=== PATIENT | male | born 1985 | race Caucasian/White ===

== ENCOUNTER 2017-09-18 20:47 | Emergency (ER) | payer OTHER, SELFPAY ==
[2017-09-18 20:48] VITALS: BP 155/116; PULSE 90; RESP 20; TEMP 36.6; O2SAT 97; BMI 34.0
[2017-09-18] MEDS: Ketorolac 60 MG/2 ML Vial IM (21:29)
--- NOTE | 2017-09-18 21:30 | ED.DCSUM_ITS ---
- ER Visit Summary Date of Service: 09/18/17 Chief Complaint: [] Low lumbar back pain while doing exercises in gym History of Present Illness: The patient is a 32 M [] he was doing rowing type exercises using a 75 pound weight he had done about 10 repetitions or more he did not have any direct trauma but he felt a pull to his left back during this activity he stopped and came in for evaluation. He has no radiation to his lower extremities no paresthesias chief complaint is a pain to the left paralumbar back he did urinate without difficulty he has no perineal anesthesia and he has no back elements his blood pressure is noted to be high at 155/116 and he states he did take a pre-workout cocktail but has a lot of caffeine in it other substances, he has had his blood pressure checked in the past and is always within normal range Physical Examination: [] No distress when he sitting perfectly flat he feels fine he points to his left paralumbar back is a discomfort he is a large gentleman head neck chest unremarkable lungs are clear heart tones are normal abdomen soft nontender the C-spine T-spine lumbar spine are nontender he has pain to the left lumbar musculature greater than the right lumbar musculature he has no pain to the midline back, he is able to stand and walk without difficulty he can heel raise toe raise and knee bend there is no signs of cauda equina and he denies any sense of perineal anesthesia Test Results: [] Emergency Department Course and Treatment: [] And his history and his physical exam the symptoms are consistent with musculoskeletal process, there is no signs of fracture or bony injury or cauda equina he understands , will be treated with Toradol IM Naprosyn Flexeril [place] No. 4 tablets to use at bedtime he will avoid any strenuous activity and follow-up with his doctor tomorrow return for change in symptoms Treatment Plan: [] Disposition: [] Stable Impression: [] Lumbar back injury working out in gym This note was generated with [employer] dictation software. It may contain incorrect words, spelling, and punctuation that were not noted in review of the chart prior to signing ED Disposition - Plan for ED Patient: Chief Complaint: Back Referrals: Juan Carlos Brian,Melissa Vallejo [Primary Care Provider] -
--- NOTE | 2017-09-18 21:30 | ED.DEP ---
ED Disposition - Plan for ED Patient: Chief Complaint: Back Instructions: ED Low Back Pain Injury Referrals: JuanC arlos Brian,Melissa Vallejo [Primary Care Provider] -
--- NOTE | 2017-09-18 21:31 | DCINST.ED_ITS ---
ED Disposition - Plan for ED Patient: Chief Complaint: Back Instructions: ED Low Back Pain Injury Referrals: Juan Carlos Brian,Melissa Vallejo [Primary Care Provider] -
--- NOTE | 2017-09-18 21:31 | ED.DEP ---
ED Disposition - Plan for ED Patient: Chief Complaint: Back Instructions: ED Low Back Pain Injury Prescriptions: Hydrocodone Bitart/Apap 5-325 [[place] 5/325] 1 tab PO QHS #4 tab Naproxen [Naprosyn] 500 mg PO BID PRN #20 tab Referrals: [facility],Melissa Vallejo [NON-STAFF] -
[2017-09-18 21:49] VITALS: BP 131/69; PULSE 69; RESP 16; O2SAT 96
--- NOTE | 2017-09-18 21:50 | ED.RN ---
REVIEWED D/C INSTRUCTIONS, FOLLOW UP CARE, PRESCRIPTIONS, AND S/S THAT WOULD WARRANT A RETURN TO THE ED WITH PT. PT VERBALIZED AN UNDERSTANDING AND DENIES FURTHER QUESTIONS FOR THIS RN. PT SKIN P/W/D, RESP EVEN AND UNLABORED, PT A&O X 3, NO DISTRESS NOTED. PT AMBULATED OUT OF ED, GAIT STEADY.
== END 2017-09-18 21:52 | disposition home or self-care (01) ==
LOC: ED 21:30
PROVIDERS: Emergency Provider Emergency Medicine; Family Provider Internal Medicine; PCP Internal Medicine
DX: S39.002A Unspecified injury of muscle, fascia and tendon of lower back, initial encounter (principal); X50.0XXA Overexertion from strenuous movement or load, initial encounter; Y93.89 Activity, other specified; Y92.39 Other specified sports and athletic area as the place of occurrence of the external cause; Y99.9 Unspecified external cause status
CPT/HCPCS: 96372; 99282

== ENCOUNTER 2018-05-17 01:34 | Emergency (ER) | payer OTHER, SELFPAY ==
[2018-05-17] VITALS (7 sets, daily range): BP systolic 128–139; BP diastolic 63–75; PULSE 77–89; RESP 14–18; TEMP 36.4; O2SAT 88–99; BMI 34.4
--- NOTE | 2018-05-17 01:41 | ED.DCSUM_ITS ---
- ER Visit Summary Date of Service: 05/17/18 Chief Complaint: Intoxication History of Present Illness: The patient is a 33 M presents to the emergency department for intoxication. Patient was found markedly intoxicated at a local bar. The community service officer coordinator told medics that he did not have too much to drink there, but apparently told me been drinking all day. The patient was vomiting and had passed out. Patient does admit to drinking today. He denies any drug abuse or use. Denies any trauma. He states that I have just been drinking too much. He denies any history of alcohol dependence. He takes no other depressant medications. He denies being suicidal or homicidal. Physical Examination: Vital signs reviewed General: Well-nourished, well-developed Head: Normocephalic, atraumatic Eyes: Pupils equal and reactive, extraocular muscles intact Neck, supple, no lymphadenopathy Heart: Regular rate and rhythm Respiratory: No distress, clear bilaterally Abdomen: Soft, nontender, nondistended, no peritoneal signs Back: Nontender Extremities: Nontender, no edema, no cords Skin: Normal color no rash Neuro: Inattentive, but answers questions appropriately, no focal or lateralizing deficits Test Results: [] Emergency Department Course and Treatment: The patient does appear to be intoxicated. He has no evidence of trauma. IV was established. Patient was given Zofran and maintenance fluids. I did obtain a BMP which was normal. His serum alcohol was elevated at 0.256. The patient is resting comfortably. At this time, he will be observed until he can demonstrate clinical sobriety. At that time he will be reassessed. As long as he has no further issues, I do feel the patient will be able to be safely discharged. Treatment Plan: [] Disposition: Pending Impression: 1. Acute alcohol intoxication This note was generated with [employer] ([place] dictation software. It may contain incorrect words, spelling, and punctuation that were not noted in review of the chart prior to signing ED Disposition - Plan for ED Patient: Chief Complaint: ETOH Intox Instructions: ED Alcohol Intoxication Referrals: Danay Lehman MD [Primary Care Provider] -
[2018-05-17] MEDS: 0.9% Normal Saline 1,000 ML 150 ML IV (01:47)
[2018-05-17] MEDS: Ondansetron 4 MG/2 ML Vial IV (01:47)
[2018-05-17 02:38] LABS: Anion Gap 11 (5-15); BUN 17 mg/dL (7-18); BUN/Creat Ratio 13.4 RATIO (10-20); Calcium,Total 8.7 mg/dL (8.5-10.1); Chloride 103 mmol/L (98-107); Creatinine, Serum 1.27 mg/dL (0.70-1.30); EST Glomerular Filtration Rate 69 mL/min (>60); Est Glom Filt Rate - Afr Amer 84 mL/min (>60); Estimated Creatinine Clearance 89.96 ml/min; Glucose 146 mg/dL (74-106); Potassium 3.5 mmol/L (3.5-5.1); Sodium Level 137 mmol/L (136-145)
== END 2018-05-17 07:03 | disposition home or self-care (01) ==
LOC: ED 02:03
PROVIDERS: Emergency Provider Emergency Medicine; Family Provider Internal Medicine; PCP Internal Medicine
DX: F10.129 Alcohol abuse with intoxication, unspecified (principal); Y90.8 Blood alcohol level of 240 mg/100 ml or more; K21.9 Gastro-esophageal reflux disease without esophagitis; Z72.0 Tobacco use
CPT/HCPCS: 80048; 80320; 96361; 96374; 99285; J7030; G0480; J2405